=== PATIENT | male | born 1980 | race Caucasian/White ===

== ENCOUNTER 2019-04-07 19:21 | Emergency (ER) | payer OTHER ==
[~2019-04-07] VITALS: Ht 190.5 cm; Wt 154.2 kg
[~2019-04-07 19:21] MED LIST: AMOXICILLIN 50500 M1 PO; IBUPROFEN 200200 M1 PO; MEDROL DOSPAK21 TA1 PO; NYQUIL; PROAIR HFA8.5 GM IH
[2019-04-07] MEDS ORDERED: PERCOCET 7.5-31 EACH PO (20:46)
[2019-04-07] MEDS ORDERED: FLEXERIL PO (20:46)
[2019-04-07 21:18] VITALS: BP 150/86
== END 2019-04-07 21:18 | disposition home or self-care (01) ==
LOC: M.ERS 19:21
DX: M54.16 Radiculopathy, lumbar region (principal); Z98.890 Other specified postprocedural states; V49.49XA Driver injured in collision with other motor vehicles in traffic accident, initial encounter; Y93.89 Activity, other specified; Y92.89 Other specified places as the place of occurrence of the external cause; Y99.8 Other external cause status

== ENCOUNTER 2020-03-29 18:57 | Emergency (ER) | payer OTHER ==
[~2020-03-29] VITALS: Ht 190.5 cm; Wt 154.2 kg
[~2020-03-29 18:57] MED LIST changes: +FLEXERIL PO; +PERCOCET 7.5-31 EACH PO
[2020-03-29] MEDS ORDERED: FLEXERIL PO (19:11)
[2020-03-29] MEDS ORDERED: DOXYCYCLINE 10100 MG PO (19:37)
[2020-03-29 19:47] VITALS: BP 179/96
== END 2020-03-29 19:48 | disposition home or self-care (01) ==
LOC: M.ERS 18:57
DX: L03.115 Cellulitis of right lower limb (principal); Z90.89 Acquired absence of other organs

== ENCOUNTER 2021-06-17 05:28 | Emergency (ER) | payer OTHER ==
[~2021-06-17] VITALS: Ht 188 cm; Wt 145.2 kg
[~2021-06-17 05:28] MED LIST changes: +DOXYCYCLINE 10100 MG PO
[2021-06-17] MEDS ORDERED: PERCOCET 10-321 EAC1 PO (06:23)
[2021-06-17] MEDS ORDERED: NEURONTIN 300M300 M2 PO (06:26)
[2021-06-17] MEDS ORDERED: LISINOPRIL5 MG PO (06:27)
[2021-06-17] MEDS ORDERED: LANTUS SUBQ (06:27)
[2021-06-17] MEDS ORDERED: METFORMIN HCL500 M3 PO (06:28)
[2021-06-17] MEDS ORDERED: TOPROL XL25 MG PO (06:28)
[2021-06-17] MEDS ORDERED: NORVASC10 MG PO (06:28)
[2021-06-17] MEDS ORDERED: ZYRTEC10 M5 PO (06:29)
[2021-06-17] MEDS ORDERED: BENADRYL25 MG PO (06:30)
[2021-06-17] MEDS ORDERED: DIAZEPAM 2MG TAB2 MG PO (06:30)
[2021-06-17] MEDS ORDERED: STOOL SOFTENER100 MG PO (06:31)
[2021-06-17] MEDS ORDERED: NICOTINE PATCH1 EAC2 TRANSDERM (06:31)
[2021-06-17] MEDS ORDERED: MIRALAX119 GM PO (06:32)
[2021-06-17 07:23] LABS: ABSOLUTE BASOPHILS 0.1 thou/uL (0.0-0.2); ABSOLUTE EOSINOPHILS 0.1 thou/uL (0.0-0.7); ABSOLUTE LYMPHOCYTES 1.3 thou/uL (0.8-5.3); ABSOLUTE MONOCYTES 0.5 thou/uL (0.0-1.2); ABSOLUTE NEUTROPHILS 8.5 thou/uL (1.6-8.1); BASOPHILS 0.6 %; EOSINOPHILS 1.1 %; HEMATOCRIT 42.5 % (42.0-52.0); HEMOGLOBIN 14.2 gm/dL (14.0-18.0); LYMPHOCYTES 12.7 %; MCH 27.3 pg (26.0-34.0); MCHC 33.5 g/dL (28.0-37.0); MCV 81.5 fL (80.0-100.0); MONOCYTES 4.5 %; MPV 7.4 fl. (7.2-11.1); NUCLEATED RBCS 0 /100WBC; PLATELET COUNT* 391 thou/uL (150-400); POLYS 81.1 %; RBC 5.21 mil/uL (4.50-6.00); RDW-CV 13.6 % (10.5-14.5); WBC 10.4 thou/uL (4.0-11.0)
[2021-06-17 07:32] LABS: CALCIUM 9.4 mg/dL (8.5-10.1); CREATININE 0.9 mg/dL (0.6-1.3); POTASSIUM 4.1 mmol/L (3.5-5.1)
[2021-06-17 07:36] LABS: ALBUMIN 3.9 g/dL (3.4-5.0); TOTAL BILIRUBIN 0.3 mg/dL (<0.1-1.0); TOTAL PROTEIN 8.5 g/dL (6.4-8.2)
[2021-06-17 07:41] LABS: APTT 23.7 Seconds (25.0-31.3); PROTIME 10.8 Seconds (9.20-11.50)
[2021-06-17 09:15] VITALS: BP 148/86
--- NOTE | 2021-06-17 11:33 | EKG ---
[place] [address] ELECTROCARDIOGRAM REPORT Name: JAMES ROYAL V Room: [facility]#: [id number] Admission: 06/17/21 Attend Phys: Discharge: 06/17/21 Date of : 80 Date of Service: 06/17/21 0536 Report #: [id number] THIS REPORT FOR: //name// [facility] ED Test Date: 2021-06-17 Test Time: 05:36:27 Pat Name: JAMES ROYAL Department: Room: Gender: Manager Of Business Operations: [facility] : 1980 Requested By: Adrianna Gottlieb Order Number: [id number] MD: Abraham Lee Measurements Intervals [place] Rate: 82 P: 26 MN: 185 QRS: 14 QRSD: 88 T: 59 QT: 374 QTc: 437 Interpretive Statements Sinus rhythm ST elev, probable normal early repol pattern No previous ECG available for comparison Electronically Signed On 06-17-2021 11:33:04 CDT by Abraham Lee [email or web address] <ELECTRONICALLY SIGNED> By: Epi Lee MD, [facility] 06/17/21 1133 0536 0536 Epi Lee MD, NITESH /EPI
== END 2021-06-17 09:15 | disposition home or self-care (01) ==
LOC: M.ERS 05:28
PROVIDERS: Personal Emergency Response Attendant
DX: R07.89 Other chest pain (principal); R59.1 Generalized enlarged lymph nodes; I10 Essential (primary) hypertension; Z90.89 Acquired absence of other organs; Z79.4 Long term (current) use of insulin; Z79.899 Other long term (current) drug therapy